=== PATIENT | male | born 1980 | race Two or more races ===

== ENCOUNTER 2017-06-19 12:44 | Emergency (ER) | payer MEDICAID, SELFPAY ==
[~2017-06-19] VITALS: Ht 188 cm; Wt 97.5 kg
[2017-06-19 13:05] VITALS: BP 134/70
[2017-06-19] MEDS ORDERED: ALBUTEROL SULFATE 2.5 MG/3 ML NPPB ONE (13:30)
[2017-06-19] MEDS ORDERED: ALBUTEROL SULFATE 2.5 MG/3 ML ONE (13:58)
== END 2017-06-19 14:12 | disposition home or self-care (01) ==
LOC: ED 14:09
DX: J20.8 Acute bronchitis due to other specified organisms (principal)
CPT/HCPCS: 71020; 94640; 99284; J7512; J7613